=== PATIENT | female | born 1930 | race Caucasian/White ===

== ENCOUNTER 2019-03-22 15:33 | Emergency (ER) | payer MEDICARE ==
--- NOTE | 2019-03-22 16:14 | ED ---
GI/ HPI - HPI Summary HPI Summary: This pt is an 89 y/o female presenting to [facility] c/o throat pain and drooling for the past 2 hours. Pt reports she was out for lunch at a restaurant today and had soup, meatball, and a chunk of bread. She states she had 5 tablespoonfuls of the broth and then ate the bread when she began to feel something stuck in her throat. Since then she has been having throat pain and has been spitting up her secretions. Pt reports is unable to swallow and has been belching and vomiting. Denies fever, SOB. 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 - History of Current Complaint Chief Complaint: EDForeignBodyEsophag Time Seen by Provider: 03/22/19 16:03 Stated Complaint: TROUBLE BREATHING PER PT Hx Obtained From: Patient, Family/Technical Report Writer Onset/Duration: Started Hours Ago, Still Present Timing: Lasting Hours Current Severity: Moderate Pain Intensity: 3 Location of Pain: Other - esophageal Associated Signs and Symptoms: Positive: Nausea, Vomiting, Other: - POSITIVE: belching, unable to swallow. Negative: Fever, Chills Aggravating Factor(s): Nothing Alleviating Factor(s): Nothing - Allergy/Home Medications Allergies/Adverse Reactions: Allergies Allergy/AdvReac Type Severity Reaction Status Date / Time No Known Allergies Allergy Verified 03/22/19 15:39 Home Medications: Home Medications Lisinopril TAB* [Prinivil TAB 10 MG*] 20 mg PO DAILY 03/22/19 [History Confirmed 03/22/19] amLODIPine TAB* [Norvasc 5 mg TAB*] 2.5 mg PO DAILY 03/22/19 [History Confirmed 03/22/19] PMH/Surg Hx/FS Hx/Imm Hx Cardiovascular History: Reports: Hx Hypertension GI History: Reports: Hx Gastroesophageal Reflux Disease, Other GI Disorders - diverticulitis Neurological History: Reports: Hx Transient Ischemic Attacks (TIA) Infectious Disease History: No Infectious Disease History: Denies: Traveled Outside the [place] in Last 30 Days - Family History Known Family History: Positive: Cardiac Disease - Brother with [place] - Social History Alcohol Use: None Substance Use Type: Reports: None Smoking Status (MU): Never Smoked Tobacco Have You Smoked in the Last Year: No Review of Systems Negative: Fever ENT: Other - POSITIVE: throat pain Negative: Shortness Of Breath Gastrointestinal: Other - POSITIVE: unable to swallow, belching Positive: Vomiting All Other Systems Reviewed And Are Negative: Yes Physical Exam - Summary Physical Exam Summary: VITAL SIGNS: Reviewed. GENERAL: Patient is a well-developed and nourished female. Patient is not in any acute respiratory distress. HEAD AND FACE: No signs of trauma. No ecchymosis, hematomas or skull depressions. No sinus tenderness. EYES: PERRLA, EOMI x 2, No injected conjunctiva, no nystagmus. EARS: Hearing grossly intact. Ear canals and tympanic membranes are within normal limits. MOUTH: Oropharynx within normal limits. Patient is vomiting/drooling. NECK: Supple, trachea is midline, no adenopathy, no JVD, no carotid bruit, no c- spine tenderness, neck with full ROM. CHEST: Symmetric, no tenderness at palpation LUNGS: Clear to auscultation bilaterally. No wheezing or crackles. CVS: Regular rate and rhythm, S1 and S2 present, no murmurs or gallops appreciated. ABDOMEN: Soft, non-tender. No signs of distention. No rebound no guarding, and no masses palpated. Bowel sounds are normal. EXTREMITIES: FROM in all major joints, no edema, no cyanosis or clubbing. NEURO: Alert and oriented x 3. No acute neurological deficits. Speech is normal and follows commands. SKIN: Dry and warm Triage Information Reviewed: Yes Vital Signs On Initial Exam: Initial Vitals Temp Pulse Resp BP Pulse Ox 98.3 F 97 16 213/118 96 03/22/19 15:35 03/22/19 15:35 03/22/19 15:35 03/22/19 15:35 03/22/19 15:35 Vital Signs Reviewed: Yes Procedures - Sedation Patient Received Moderate/Deep Sedation with Procedure: No Diagnostics - Vital Signs Vital Signs Temp Pulse Resp BP Pulse Ox 03/22/19 15:35 98.3 F 97 16 213/118 96 - Laboratory Lab Statement: Any lab studies that have been ordered have been reviewed, and results considered in the medical decision making process. Re-Evaluation - Re-Evaluation First Eval Re-Evaluation Time: 17:02 Comment: Dr. Ojeda evaluated the pt and recommends PPI for 14 days and discharge home. GIGU Course/Dx - Course Assessment/Plan: This patient is an 89-year-old female who presents to the emergency room with a chief complaint of having a foreign body in the esophagus. The patient was given glucagon IV with no improvement. I discussed the case with Dr. Ojeda from GI and he came and assessed the patient. When he was assessing the patient, the patient had a cough and vomited and now the patient is able to swallow water. Dr. Ojeda discussed the findings and the treatment. Patient and family chose to take the PPIs for 14 days and follow-up at Dr. Flores office. The patient is alert and oriented 3, the patient is able to swallow water without any nausea or vomiting. Patient is hemodynamically stable, alert and oriented 3. - Diagnoses Differential Diagnoses - Female: Esophagitis/Gastritis, Esophageal Varices, Gastritis, Gerd, GI Foreign Body Provider Diagnoses: Foreign body in esophagus - Physician Notifications Discussed Care Of Patient With: Mauro Ojeda Time Discussed With Above Provider: 16:27 Instructed by Provider To: Other - Discussed with Dr. Ojeda, GI, who will come see pt in the ED. Discharge ED - Sign-Out/Discharge Documenting (check all that apply): Patient Departure - Discharge home - Discharge Plan Condition: Stable Disposition: HOME Prescriptions: Omeprazole 20 mg PO BID #30 tab.rap. Patient Education Materials: Esophageal Foreign Body (ED) Referrals: Mauro Gonzales MD [Primary Care Provider] - Mauro Ojeda DO [Doctor of Osteopathy] - Additional Instructions: Follow up with Dr. Ojeda, magazine feeder. FOLLOW UP WITH YOUR PRIMARY CARE PROVIDER IN 2-3 DAYS. RETURN TO THE EMERGENCY DEPARTMENT FOR ANY WORSENING OR NEW SYMPTOMS. - Billing Disposition and Condition Condition: STABLE Disposition: Home - Attestation Statements Document Initiated by Phil: Yes Documenting Scribe: Luz Gonzales Provider For Whom Phil is Documenting (Include Credential): Juan Toledo MD Scribe Attestation: Luz Haji scribed for Juan Toledo MD on 03/22/19 at 2126. Scribe Documentation Reviewed: Yes Provider Attestation: The documentation as recorded by the Luz glover accurately reflects the service I personally performed and the decisions made by , Juan Toledo MD Status of Scribe Document: Viewed
[2019-03-22] MEDS: Glucagon* 1 MG VIAL IV ONE (16:37)
[2019-03-22 17:53] VITALS: BP 184/96
== END 2019-03-22 17:40 | disposition home or self-care (01) ==
LOC: ED 15:33
DX: T18.128A Food in esophagus causing other injury, initial encounter (principal); X58.XXXA Exposure to other specified factors, initial encounter; Y92.511 Restaurant or cafe as the place of occurrence of the external cause; I10 Essential (primary) hypertension; K21.9 Gastro-esophageal reflux disease without esophagitis; Z86.73 Personal history of transient ischemic attack (TIA), and cerebral infarction without residual deficits; Z79.899 Other long term (current) drug therapy
CPT/HCPCS: 96374; 99282; J1610

== ENCOUNTER 2019-09-30 13:54 | Observation (INO) ==
[2019-09-30 15:17] LABS: ABS Basophils 0.2 10^3/ul (0-0.2); ABS Eosinophils 0.2 10^3/ul (0-0.6); ABS Lymphocytes 1.9 10^3/ul (1.0-4.8); ABS Monocytes 0.9 10^3/ul (0-0.8); Eosinophil % 1.5 %; Hematocrit 34 % (35-47); Hemoglobin 11.5 g/dL (12.0-16.0); Lymphocyte % 17.2 %; Mean Corpuscular HGB Conc 34 g/dL (31-36); Mean Corpuscular Hemoglobin 27 pg (27-31); Mean Corpuscular Volume 79 fL (80-97); Mean Platelet Volume 7.4 fL (7.4-10.4); Platelet Count 479 10^3/uL (150-450); Red Blood Count 4.29 10^6 /uL (3.70-4.87); Red Cell Distribution Width 16 % (10-15)
[2019-09-30 15:18] LABS: Urine Appearance Cloudy; Urine Bilirubin Negative (Negative); Urine Blood Negative (Negative); Urine Color Yellow; Urine Glucose Negative (Negative); Urine Ketones Negative (Negative); Urine Nitrite Negative (Negative); Urine Protein Negative (Negative); Urine Urobilinogen Negative (Negative)
[2019-09-30 15:20] LABS: Urine Bacteria Absent (Absent); Urine Red Blood Cell Trace(0-2/hpf) (Absent); Urine Squamous Epithelial Cell Present (Absent); Urine White Blood Cell 1+(6-10/hpf) (Absent)
[2019-09-30 15:35] LABS: ALT 6 U/L (7-52); AST 11 U/L (13-39); Albumin 3.7 g/dL (3.2-5.2); Albumin/Globulin Ratio 1.2 (1-3); Alkaline Phosphatase 81 U/L (34-104); Anion Gap 6 mmol/L (2-11); BUN/Creatinine Ratio 17.5 (8-20); Blood Urea Nitrogen 21 mg/dL (6-24); C Reactive Protein 46.09 mg/L (<8.01); CO2 Carbon Dioxide 25 mmol/L (22-32); Calcium 9.5 mg/dL (8.6-10.3); Chloride 102 mmol/L (101-111); EGFR African American 51.3 (>60); EGFR Non-African American 42.4 (>60); Globulin 3.1 g/dL (2-4); Glucose 85 mg/dL (70-100); Potassium 4.1 mmol/L (3.5-5.0); Sodium 133 mmol/L (135-145); Total Protein 6.8 g/dL (6.4-8.9)
[2019-09-30] MEDS ORDERED: Iodixanol (CONTRAST) 320 MG/ML 100 ML SDV IV ONE (15:58)
[2019-09-30] MEDS ORDERED: cefTRIAXone 1 gm/50 mL NS BAG 1 GM/50 ML BAG IV ONE (17:56)
[2019-09-30] MEDS ORDERED: Ondansetron 4 mg VIAL 2 MG/ML 2 ml VIAL IV PRN (19:33)
[2019-09-30 20:19] LABS: % Iron Saturation 13 % (15-55); Iron 45 ug/dL (50-212); Total Iron Binding Capacity 346 mcg/dL (250-450); Transferrin 247 mg/dL (203-362)
[2019-09-30 20:40] LABS: Ferritin 39.4 ng/mL (11-307)
[2019-09-30] MEDS: Lidocaine PATCH 5% PATCH TRANSDERM SCH (22:40)
[2019-09-30] MEDS: NS 0.9% 1000 ml BAG 1,000 ML IV SCH (22:42)
[2019-09-30] MEDS: Heparin 5000 UNITS/ML VIAL(*) 1 ml vial SUBCUT SCH (22:42)
[2019-09-30] MEDS: Lidocaine Patch REMOVE PATCH PATCH OFF SCH (23:30)
[2019-10-01 03:03] LABS: Vitamin D Total 25(OH) 20.3 ng/mL (20-50)
[2019-10-01] MEDS: Heparin 5000 UNITS/ML VIAL(*) 1 ml vial SUBCUT SCH ×3 (05:15→20:07)
[2019-10-01 05:45] LABS: ABS Basophils 0.1 10^3/ul (0-0.2); ABS Eosinophils 0.1 10^3/ul (0-0.6); ABS Lymphocytes 2.8 10^3/ul (1.0-4.8); ABS Monocytes 0.7 10^3/ul (0-0.8); Eosinophil % 1.5 %; Hematocrit 32 % (35-47); Hemoglobin 10.7 g/dL (12.0-16.0); Mean Corpuscular HGB Conc 34 g/dL (31-36); Mean Corpuscular Hemoglobin 27 pg (27-31); Mean Corpuscular Volume 80 fL (80-97); Mean Platelet Volume 7.7 fL (7.4-10.4); Nucleated Red Blood Cells % 0.1; Platelet Count 431 10^3/uL (150-450); Red Blood Count 3.96 10^6 /uL (3.70-4.87); Red Cell Distribution Width 16 % (10-15)
[2019-10-01 05:53] LABS: Activated Partial Thrombo Time 31.3 seconds (26.0-38.0); INR 1.06 (0.82-1.09)
[2019-10-01 05:55] LABS: BUN/Creatinine Ratio 21.7 (8-20); Calcium 8.6 mg/dL (8.6-10.3); EGFR African American 51.3 (>60); EGFR Non-African American 42.4 (>60); Potassium 4.1 mmol/L (3.5-5.0)
[2019-10-01] MEDS: Lidocaine PATCH 5% PATCH TRANSDERM SCH (08:39)
[2019-10-01] MEDS: Lidocaine Patch REMOVE PATCH PATCH OFF SCH (20:14)
[2019-10-01] MEDS ORDERED: hydrALAZINE 20 mg/ml 1 ML Vial IV IV SLOW PU PRN (23:40)
[2019-10-02] MEDS ORDERED: hydrALAZINE 20 mg/ml 1 ML Vial IV IV SLOW PU ONE (01:04)
[2019-10-02] MEDS: Heparin 5000 UNITS/ML VIAL(*) 1 ml vial SUBCUT SCH ×2 (05:16→14:22)
[2019-10-02 09:03] LABS: BUN/Creatinine Ratio 18.7 (8-20); Calcium 9.3 mg/dL (8.6-10.3); EGFR African American 58.6 (>60); EGFR Non-African American 48.4 (>60)
[2019-10-02] MEDS: Lidocaine PATCH 5% PATCH TRANSDERM SCH (10:20)
[2019-10-02] MEDS ORDERED: Senna TAB 8.6 mg TAB PO PRN (11:27)
[2019-10-02] MEDS ORDERED: Polyethylene Glycol 3350 17 GM PACKET PO PRN (11:28)
[2019-10-02] MEDS: NS 0.9% 1000 ml BAG 1,000 ML IV SCH (11:29)
[2019-10-02 15:49] VITALS: BP 112/81
== END 2019-10-02 18:20 | disposition home or self-care (01) ==
LOC: ED 13:54 → MED 13:54
PROVIDERS: ADMIT Pediatrics; ATTEND Internal Medicine

== ENCOUNTER 2019-10-04 11:29 | Inpatient (IN) ==
[2019-10-04 13:47] LABS: ABS Basophils 0.1 10^3/ul (0-0.2); ABS Eosinophils 0.1 10^3/ul (0-0.6); ABS Lymphocytes 2.5 10^3/ul (1.0-4.8); ABS Monocytes 1.1 10^3/ul (0-0.8); Eosinophil % 1.1 %; Hematocrit 34 % (35-47); Hemoglobin 11.2 g/dL (12.0-16.0); Lymphocyte % 19.5 %; Mean Corpuscular HGB Conc 33 g/dL (31-36); Mean Corpuscular Hemoglobin 26 pg (27-31); Mean Corpuscular Volume 79 fL (80-97); Mean Platelet Volume 7.6 fL (7.4-10.4); Platelet Count 474 10^3/uL (150-450); Red Blood Count 4.26 10^6 /uL (3.70-4.87); Red Cell Distribution Width 16 % (10-15); White Blood Count 12.9 10^3/uL (3.5-10.8)
[2019-10-04 14:05] LABS: Calcium 9.4 mg/dL (8.6-10.3); EGFR African American 63.3 (>60); EGFR Non-African American 52.3 (>60); Potassium 3.6 mmol/L (3.5-5.0)
[2019-10-04] MEDS: Lidocaine Patch REMOVE PATCH PATCH OFF SCH (21:23)
[2019-10-04 21:33] LABS: Urine Appearance Cloudy; Urine Bilirubin Negative (Negative); Urine Blood Negative (Negative); Urine Color Yellow; Urine Glucose Negative (Negative); Urine Ketones 1+ (Negative); Urine Nitrite Negative (Negative); Urine Protein Negative (Negative); Urine Specific Gravity 1.009 (1.010-1.030); Urine Urobilinogen Negative (Negative)
[2019-10-04 21:36] LABS: Urine Bacteria Absent (Absent); Urine Red Blood Cell Absent (Absent); Urine Squamous Epithelial Cell Present (Absent); Urine White Blood Cell 2+(11-20/hpf) (Absent)
[2019-10-05] MEDS: Lidocaine PATCH 5% PATCH TRANSDERM SCH (08:19)
[2019-10-05 13:24] LABS: Hematocrit 34 % (35-47); Hemoglobin 11.2 g/dL (12.0-16.0); Mean Corpuscular HGB Conc 33 g/dL (31-36); Mean Corpuscular Hemoglobin 26 pg (27-31); Mean Corpuscular Volume 81 fL (80-97); Red Blood Count 4.25 10^6 /uL (3.70-4.87); Red Cell Distribution Width 16 % (10-15); White Blood Count 15.1 10^3/uL (3.5-10.8)
[2019-10-05 13:31] LABS: BUN/Creatinine Ratio 19.2 (8-20); Calcium 9.6 mg/dL (8.6-10.3); EGFR African American 64.1 (>60); EGFR Non-African American 52.9 (>60); Potassium 3.5 mmol/L (3.5-5.0)
[2019-10-05 13:59] LABS: ABS Basophils 0.2 10^3/ul (0-0.2); ABS Eosinophils 0.3 10^3/ul (0-0.6); ABS Lymphocytes 2.7 10^3/ul (1.0-4.8); ABS Monocytes 1.2 10^3/ul (0-0.8); Eosinophil % 1.7 %; Lymphocyte % 17.6 %; Mean Platelet Volume 7.9 fL (7.4-10.4); Nucleated Red Blood Cells % 0.1; Platelet Count 429 10^3/uL (150-450)
[2019-10-05] MEDS: Enoxaparin 40 MG/0.4 ML SYR(*) SUBCUT SCH (16:44)
[2019-10-05] MEDS: Lidocaine Patch REMOVE PATCH PATCH OFF SCH (21:55)
[2019-10-06 05:57] LABS: ABS Basophils 0.1 10^3/ul (0-0.2); ABS Eosinophils 0.3 10^3/ul (0-0.6); ABS Lymphocytes 3.2 10^3/ul (1.0-4.8); Eosinophil % 3.1 %; Hematocrit 32 % (35-47); Hemoglobin 10.8 g/dL (12.0-16.0); Mean Corpuscular HGB Conc 34 g/dL (31-36); Mean Corpuscular Hemoglobin 27 pg (27-31); Mean Corpuscular Volume 80 fL (80-97); Mean Platelet Volume 7.7 fL (7.4-10.4); Nucleated Red Blood Cells % 0.1; Platelet Count 438 10^3/uL (150-450); Red Blood Count 4.06 10^6 /uL (3.70-4.87); Red Cell Distribution Width 16 % (10-15); White Blood Count 10.1 10^3/uL (3.5-10.8)
[2019-10-06 06:14] LABS: BUN/Creatinine Ratio 20.5 (8-20); Calcium 9.4 mg/dL (8.6-10.3); EGFR African American 73.4 (>60); EGFR Non-African American 60.6 (>60); Potassium 3.4 mmol/L (3.5-5.0)
[2019-10-06 08:14] LABS: Magnesium 1.8 mg/dL (1.9-2.7)
[2019-10-06] MEDS: Lidocaine PATCH 5% PATCH TRANSDERM SCH (08:56)
[2019-10-06] MEDS ORDERED: Potassium Chlor 20 meq TAB.ER PO ONE (12:00)
[2019-10-06] MEDS ORDERED: Magnesium Hydroxide LIQ 30 ML UDC PO PRN (13:25)
[2019-10-06] MEDS: Enoxaparin 40 MG/0.4 ML SYR(*) SUBCUT SCH (16:57)
[2019-10-06] MEDS: Lidocaine Patch REMOVE PATCH PATCH OFF SCH (22:18)
[2019-10-06] MEDS: Senna TAB 8.6 mg TAB PO SCH (22:21)
[2019-10-07 06:28] LABS: ABS Basophils 0.1 10^3/ul (0-0.2); ABS Eosinophils 0.3 10^3/ul (0-0.6); ABS Lymphocytes 3.7 10^3/ul (1.0-4.8); ABS Monocytes 1.2 10^3/ul (0-0.8); Eosinophil % 2.8 %; Hematocrit 31 % (35-47); Hemoglobin 10.2 g/dL (12.0-16.0); Lymphocyte % 33.7 %; Mean Corpuscular HGB Conc 33 g/dL (31-36); Mean Corpuscular Hemoglobin 26 pg (27-31); Mean Corpuscular Volume 80 fL (80-97); Mean Platelet Volume 7.8 fL (7.4-10.4); Nucleated Red Blood Cells % 0.1; Platelet Count 465 10^3/uL (150-450); Red Blood Count 3.93 10^6 /uL (3.70-4.87); Red Cell Distribution Width 16 % (10-15); White Blood Count 11.1 10^3/uL (3.5-10.8)
[2019-10-07 06:46] LABS: Calcium 9.4 mg/dL (8.6-10.3); EGFR African American 77.4 (>60); Magnesium 1.8 mg/dL (1.9-2.7); Potassium 3.9 mmol/L (3.5-5.0)
[2019-10-07] MEDS: Lidocaine PATCH 5% PATCH TRANSDERM SCH (09:17)
[2019-10-07] MEDS: Enoxaparin 40 MG/0.4 ML SYR(*) SUBCUT SCH (16:06)
[2019-10-07] MEDS: Senna TAB 8.6 mg TAB PO SCH (21:07)
[2019-10-07] MEDS: Lidocaine Patch REMOVE PATCH PATCH OFF SCH (21:27)
[2019-10-08 06:47] LABS: ABS Basophils 0.1 10^3/ul (0-0.2); ABS Eosinophils 0.3 10^3/ul (0-0.6); ABS Lymphocytes 2.8 10^3/ul (1.0-4.8); ABS Monocytes 0.8 10^3/ul (0-0.8); Eosinophil % 3.1 %; Hematocrit 34 % (35-47); Hemoglobin 11.4 g/dL (12.0-16.0); Lymphocyte % 28.4 %; Mean Corpuscular HGB Conc 34 g/dL (31-36); Mean Corpuscular Hemoglobin 27 pg (27-31); Mean Corpuscular Volume 79 fL (80-97); Mean Platelet Volume 7.8 fL (7.4-10.4); Platelet Count 477 10^3/uL (150-450); Red Blood Count 4.29 10^6 /uL (3.70-4.87); Red Cell Distribution Width 16 % (10-15); White Blood Count 9.8 10^3/uL (3.5-10.8)
[2019-10-08 07:02] LABS: BUN/Creatinine Ratio 19.1 (8-20); Calcium 9.5 mg/dL (8.6-10.3); EGFR African American 72.4 (>60); EGFR Non-African American 59.9 (>60); Magnesium 1.7 mg/dL (1.9-2.7); Potassium 4.2 mmol/L (3.5-5.0)
[2019-10-08] MEDS: Lidocaine PATCH 5% PATCH TRANSDERM SCH (08:49)
[2019-10-08] MEDS: Enoxaparin 40 MG/0.4 ML SYR(*) SUBCUT SCH (17:32)
[2019-10-08] MEDS: Lidocaine Patch REMOVE PATCH PATCH OFF SCH (21:25)
[2019-10-08] MEDS: Senna TAB 8.6 mg TAB PO SCH (21:25)
[2019-10-09] MEDS: Lidocaine PATCH 5% PATCH TRANSDERM SCH (08:34)
[2019-10-09 11:46] VITALS: BP 118/48
== END 2019-10-09 13:53 | disposition swing bed (61) | DRG 544 ==
LOC: MED 11:29 → ED 11:29 → MED 15:45
PROVIDERS: ADMIT Internal Medicine; ATTEND Hospitalist